=== PATIENT | female | born 1970 | race Caucasian/White ===

== ENCOUNTER → 2018-01-24 | Outpatient (CLI) | payer OTHER | END | disposition home or self-care (01) | LOC: KCIC 12:24 | DX: M16.12 Unilateral primary osteoarthritis, left hip (principal); M25.512 Pain in left shoulder; G89.29 Other chronic pain | CPT/HCPCS: 73030; 73502 ==

== ENCOUNTER → 2018-01-27 | Outpatient (CLI) | payer SELFPAY, OTHER | END | disposition home or self-care (01) | LOC: KCIC MAMMO 11:48 | DX: Z12.31 Encounter for screening mammogram for malignant neoplasm of breast (principal); E78.4 Other hyperlipidemia | CPT/HCPCS: 77063; 77067 ==

== ENCOUNTER → 2018-02-05 | Outpatient (CLI) | payer OTHER | END | disposition home or self-care (01) | LOC: KCIC MAMMO 09:21 | DX: N63.20 Unspecified lump in the left breast, unspecified quadrant (principal); E78.4 Other hyperlipidemia | CPT/HCPCS: 76641; 77065 ==

== ENCOUNTER → 2019-01-22 | Outpatient (CLI) | payer OTHER ==
--- NOTE | 2019-01-22 16:47 | KCIC ---
CHEST PA LATERAL CLINICAL INDICATION: Bronchitis, cough for 2 1/2 weeks. COMPARISON: None FINDINGS: Heart is normal in size. Prominent bilateral central bronchial markings are seen. Mild patchy opacities seen in the right middle lobe. No pneumothorax or pleural effusion. Visualized bony thorax is within normal limits. IMPRESSION: Questionable opacity in the right middle lobe may be secondary to atelectasis or pneumonia. Superimposed mild bronchitis. Electronically signed by: Cale Alegre DO (01/22/2019 4:44 PM) [facility]
== END | disposition home or self-care (01) ==
LOC: KCIC 15:56
PROVIDERS: ATTEND Nurse Practitioner Family
DX: J40 Bronchitis, not specified as acute or chronic (principal); R91.8 Other nonspecific abnormal finding of lung field
CPT/HCPCS: 71046

== ENCOUNTER → 2019-02-03 | Outpatient (CLI) | payer OTHER ==
--- NOTE | 2019-02-03 13:23 | KCIC ---
Bilateral diagnostic digital mammograms: Reason for examination: Follow-up fibrocystic type changes. Comparison is made to previous studies dated 02/05/2018 and 01/27/2018 and 08/29/2015. Interpretation was made with the benefit of CAD. The skin and nipples show no abnormalities. No abnormal axillary lymph nodes are seen. The breast parenchyma shows scattered fibroglandular density. (Breast density: Category B.) There continues to be a small nodular parenchymal density in the 3:00 B position of the left breast which may be slightly less pronounced than on previous exam. There also continues be some mild asymmetric parenchyma in the subareolar position which is unchanged. There are no new dominant masses, suspicious calcifications or architectural distortions. Some benign calcifications are present. Impression: Continued presence of some nodular asymmetry at the 3:00 B position of the left breast. Ultrasound to follow. BI-RADS category 0: Incomplete. Needs additional imaging evaluation. Left breast ultrasound: Comparison is made to previous study dated 02/05/2018. Ultrasound examination was performed with attention to the lateral breast and axilla. In the 2:00 position 4 cm from the nipple, there continues to be a small 1.7 mm hypoechoic fibrocystic type lesion which shows a slight decrease in size since previous exam. There continues to be a small hypoechoic nodule at the 3:30 position 8 cm from the nipple measuring 1.5 mm in greatest dimension which has decreased in size. There also is a small nodular density probably representing some fibrocystic change in the retroareolar 2:00 position measuring 3.6 mm in greatest dimension. No grossly suspicious lesions are seen. No abnormal appearing lymph nodes are seen in the axilla. IMPRESSION: Improvement in the small lesions at the 2:00 and 3:30 position. Additional small hypoechoic fibrocystic type lesion in the retroareolar 2:00 position measuring 3.8 mm also with benign appearance. Recommend 6 month sonographic follow-up. BI-RADS Category 3: Probably Benign. "Our facility is accredited by the [employer] Mammography [employer]." This patient's information has been entered into a reminder system for the patient to be notified with the results of her examination and a target date for the next mammogram. Electronically signed by: Berna Mendoza MD (02/03/2019 1:19 PM) [facility]
== END | disposition home or self-care (01) ==
LOC: KCIC MAMMO 09:19
PROVIDERS: ATTEND Family Medicine
DX: N63.23 Unspecified lump in the left breast, lower outer quadrant (principal); N64.89 Other specified disorders of breast; R92.1 Mammographic calcification found on diagnostic imaging of breast
CPT/HCPCS: 76641; 77066

== ENCOUNTER → 2019-08-06 | Outpatient (CLI) | payer OTHER ==
--- NOTE | 2019-08-06 15:01 | KCIC ---
Left breast ultrasound: Reason for examination: Follow-up nodules. Comparison is made to previous studies dated 02/03/2019 and 02/05/2018. Ultrasound examination of the left breast and axillary regions of the left breast was performed. At the 2:00 position 4 cm from the nipple, there continues to be a small 2.4 mm hypoechoic fibrocystic lesion which shows a slight decrease in size. In the retroareolar 2:00 position, there continues to be a small 2.5 mm hypoechoic fibrocystic lesion which has shown decrease in size. There are no new cystic or solid nodules seen. No abnormal appearing lymph nodes are seen in the axilla. IMPRESSION: Continued presence of small fibrocystic lesions at the 2:00 position which have shown interval decrease in size. No suspicious abnormalities are seen. Recommend routine mammographic follow-up. BI-RADS Category 2: Benign. "Our facility is accredited by the [employer] Mammography [employer]." This patient's information has been entered into a reminder system for the patient to be notified with the results of her examination and a target date for the next mammogram. Electronically signed by: Berna Mendoza MD (08/06/2019 2:58 PM) [id number]
== END | disposition home or self-care (01) ==
LOC: KCIC US 13:07
PROVIDERS: ATTEND Nurse Practitioner Family
DX: N64.89 Other specified disorders of breast (principal)
CPT/HCPCS: 76641